=== PATIENT | male | born 1995 | race Caucasian/White ===

== ENCOUNTER 2022-06-15 19:57 | Emergency (ER) | payer OTHER, SELFPAY ==
[2022-06-15 20:07] VITALS: BP 110/64; PULSE 96; RESP 16; TEMP 37.6; O2SAT 97
--- NOTE | 2022-06-15 20:29 | ED.URI ---
HPI - URI/Sore Throat General Chief Complaint: Upper Respiratory Infection Stated Complaint: Cough Time Seen by Provider: 06/15/22 20:29 Source: patient and RN notes reviewed Mode of arrival: ambulatory Limitations: no limitations History of Present Illness HPI Narrative: 27-year-old male presented for complaint of cough and feeling unwell, onset today and worsening throughout the day. Endorses productive cough, headache, body aches, chills. Denies sore throat, nausea, vomiting, diarrhea, shortness of breath, fevers. Patient is not vaccinated for COVID. Denies sick contacts. MD elicited complaint: cough Related Data Home Medications Medication Instructions Recorded Confirmed No Home Medications 06/15/22 06/15/22 Allergies Allergy/AdvReac Type Severity Reaction Status Date / Time No Known Allergies Allergy Mild Verified 06/15/22 20:13 Review of Systems Review of Systems: CONSTITUTIONAL: Endorses malaise, chills EYES: Denies visual changes, redness, or discharge ENT: Denies rhinorrhea, congestion, sinus pain, otalgia, sore throat CARDIOVASCULAR: Denies chest pain, palpitations, edema RESPIRATORY: Reports cough Denies dyspnea GASTROINTESTINAL: Denies abdominal pain, nausea, vomiting, diarrhea SKIN: Denies rash or itching MUSCULOSKELETAL: Endorses myalgia Exam Narrative: GENERAL: well-appearing EYES: conjunctivae clear ENT: Mucous membranes moist. TMs pearly sexton with normal light reflex bilaterally; no tragal tenderness. CHEST: Clear to auscultation, breath sounds equal. HEART: Regular rate and rhythm. No murmur heard. SKIN: Warm, dry, no rash. MUSC: using crutches for broken toe NEURO: Alert and oriented x3. Course Course Emergency Course: Patient is aware of diagnosis, understands and agrees to treatment plan. Anticipatory guidance given. Patient agrees to follow-up as directed and is aware of reasons to seek care at the emergency department. Portions of this record may have been created with voice recognition software Level of Care: Express Care Visit Vital Signs Vital signs: Vital Signs Temperature 99.6 F 06/15/22 20:07 Pulse Rate 96 06/15/22 20:07 Respiratory Rate 16 06/15/22 20:07 Blood Pressure 110/64 06/15/22 20:07 Pulse Oximetry 97 06/15/22 20:07 Oxygen Delivery Room Air 06/15/22 20:07 Temperature 99.6 F 06/15/22 20:07 Pulse Rate 96 06/15/22 20:07 Respiratory Rate 16 06/15/22 20:07 Blood Pressure 110/64 06/15/22 20:07 Pulse Oximetry 97 06/15/22 20:07 Oxygen Delivery Room Air 06/15/22 20:07 reviewed MDM - URI/Sore Throat MDM Narrative Medical decision making narrative: COVID test negative. Advised supportive measures, recommend retesting in 2 to 3 days, and signs/symptoms to go to the ER. Pt is appropriate for outpt treatment and f/u. Differential Diagnosis Differential diagnosis: Likely upper respiratory infection, sinusitis and viral infection Discharge Plan Discharge Clinical Impression: Viral infection Patient Disposition: Home, Self-Care Condition: Stable Instructions: Antibiotic Form, COVID-19 (Coronavirus Disease 2019) (ED) Additional Instructions: Your Rapid COVID test was negative today. If you are symptomatic with reason to believe you have COVID-19, there is a high possibility your rapid test may not have detected the virus. You should follow appropriate guidelines regarding quarantine, hand washing, mask wearing, and social distancing Avoid crowds when feeling ill, until you are fever free without the use of fever reducing medications for 24 hours Recommend retesting in 2 to 3 days Rest, stay hydrated. Tylenol 1000mg every 8 hours as needed, alternate with ibuprofen 600mg every 8 hours for pain/fever Flonase/nasal spray, Zyrtec, cough syrup and cold/flu medications for symptoms as needed Follow up with your primary care provider as needed in 1 week Go to the ER for worsening symptoms or concerns Pr
== END 2022-06-15 20:43 | disposition home or self-care (01) ==
PROVIDERS: Emergency Provider Nurse Practitioner Family; PCP Family Medicine Adolescent Medicine
DX: B34.9 Viral infection, unspecified (principal); Z20.822 Contact with and (suspected) exposure to COVID-19
CPT/HCPCS: 87426; 99213; C9803; G0463